=== PATIENT | male | born 1960 | race Caucasian/White ===

== ENCOUNTER 2018-02-22 12:45 | Emergency (ER) | payer BC ==
[~2018-02-22 12:45] MED LIST: SODIUM CHLORIDE 0.9% 1000ML 1,000 ML IV STA
[2018-02-22] MEDS ORDERED: SODIUM CHLORIDE 0.9% 10ML FLUSH IV ONE (12:47)
[2018-02-22] MEDS ORDERED: CALCIUM CHLORIDE 10% 10 ML SYR IV ONE (12:47)
[2018-02-22] MEDS ORDERED: SODIUM BICARB 8.4% INJ 50 MEQ/50 ML SYR IV ONE ×2 (12:47→13:10)
[2018-02-22] MEDS ORDERED: VASOPRESSIN IV PRN (13:15)
[2018-02-22] MEDS ORDERED: SODIUM CHLORIDE 0.9% IV PRN (13:15)
[2018-02-22 13:25] VITALS: O2SAT 78
[2018-02-22 13:26] VITALS: BP 137/63
--- NOTE | 2018-02-22 13:28 | DIAGNOSTIC IMAGING REPORT ---
CHEST ONE VIEW PORTABLE CLINICAL HISTORY: CODE BLUE dyspnea COMPARISON STUDY: No previous studies for comparison. FINDINGS: Endotracheal tube 4 cm with the trevor. Upper lobe bilateral parenchymal infiltrative change. Mild infiltrative change left base. Mild cardiomegaly. IMPRESSION: 1. Endotracheal tube 4 cm below the trevor. 2. Diffuse bilateral parenchymal infiltrative change The above report was generated using voice recognition software. It may contain grammatical, syntax or spelling errors. Electronically signed by: Dominick Wang M.D. 02/22/2018 1:26 PM Dictated Date/Time: 02/22/2018 1:26 PM
[2018-02-22 13:32] LABS: HEMATOCRIT 45.8 % (42-52); MEAN CELL VOLUME 94.8 fL (80-100); MEAN CORPUSCULAR HGB CONC 30.6 g/dl (32-36); MEAN PLATELET VOLUME 10.3 fL (7.4-10.4); PLATELET COUNT 208 K/uL (130-400); RED CELL DISTRIBUTION WIDTH CV 13.4 % (11.5-14.5); RED CELL DISTRIBUTION WIDTH SD 46.7 fL (36.4-46.3); WHITE BLOOD COUNT 20.78 K/uL (4.8-10.8)
[2018-02-22] MEDS ORDERED: LIDOCAINE 2% 20 MG/ML 5ML SYR ONE (13:32)
[2018-02-22 13:36] VITALS: PULSE 54
[2018-02-22 13:40] LABS: INR 1.2 (0.9-1.1); PTT PATIENT 43.1 SECONDS (21.0-31.0)
--- NOTE | 2018-02-22 13:56 | Procedure Note ---
Procedure Note Procedure Date Feb 22, 2018. Procedure Description Procedure Name: Left femoral arterial line Consent obtained: emergent consent implied Time of procedure: 13:15 Performed by: attending Indications: diagnostic Contraindications: none Description: Patient's left groin was prepped with chlorhexidine, patient had just regained return of spontaneous circulation, indication was continuous arterial waveform documentation. Left femoral artery was identified by palpation, a introducer needle was introduced, pulsatile blood was noted to return, guidewire was inserted after small skin juli a 12 cm 20-gauge angiocatheter was inserted into the left femoral artery and was secured via suture. Complications: none Patient tolerated procedure: well Post-procedure vital signs: reviewed and stable Comments: Blood gas testing was performed on the specimen obtained from femoral arterial line with spontaneous pulsatile blood flow
--- NOTE | 2018-02-22 14:07 | Critical Care Consultation ---
Critical Care Consultation Date of Consultation: Feb 22, 2018. Attending Physician: Juan Antonio Pavon MD Reason for Consultation: CODE BLUE, respiratory arrest leading to cardiac arrest History of Present Illness History is limited due to acuity of situation, history obtained from paramedics and emergency department physician. Per report the patient had suffered a hypoxic respiratory arrest requiring CPR. Per paramedics the patient received approximately 40 minutes of CPR before there was return of spontaneous circulation. There is an extended transport from [facility] and the patient subsequently lost spontaneous circulation upon his arrival in the emergency department. Patient was receiving active chest compressions upon my arrival in the emergency department. There is reported history of continued tobacco abuse and likely COPD. There is no known history of heart disease nor pulmonary embolism, the patient has reportedly relocated to the area from [place] in the preceding couple of days. Past Medical/Surgical History As noted above Social History Smoking Status: Former Smoker Allergies Coded Allergies: No Known Allergies (Unverified , 02/22/18) Current Inpatient Medications Current Inpatient Medications Medications (Trade) Dose Ordered Sig/Lawanda Route Start Time Stop Time Status Last Admin Dose Admin Vasopressin 20 units/Sodium Chloride 101 ml @ 12 mls/hr [id number] PRN IV 02/22/18 13:15 02/22/18 21:00 Vasopressin 20 units/Sodium Chloride 101 ml @ 12 mls/hr [id number] IV 02/22/18 21:00 03/24/18 20:59 Review of Systems Unable to obtain secondary to patient condition Physical Exam Date Time Temp Pulse Resp B/P (MAP) Pulse Ox O2 Delivery O2 Flow Rate FiO2 02/22/18 13:36 54 02/22/18 13:15 100 02/22/18 13:01 58 02/22/18 12:57 67 General Appearance: severe distress Head: normocephalic ENT: other (Endotracheal tube present, bloody secretions noted coming from the endotracheal tube) Neck: trachea midline, other (JVD is present) Respiratory: rhonchi, other (Severely coarse sounds bilaterally) Cardiovasular: irregular rate (Bradycardia) Abdomen: non tender, no organomegaly Upper Extremities: no deformity Lower Extremities: no edema Pulses: femoral (R) (1+), femoral (L) (1+) Neuro: other (GCS 3 T) Laboratory Results Last 24 Hours Test 02/22/18 12:41 02/22/18 13:14 Creatine Kinase MB Ratio White Blood Count 20.78 K/uL Red Blood Count 4.83 M/uL Hemoglobin 14.0 g/dL Hematocrit 45.8 % Mean Corpuscular Volume 94.8 fL Mean Corpuscular Hemoglobin 29.0 pg Mean Corpuscular Hemoglobin Concent 30.6 g/dl Platelet Count 208 K/uL Mean Platelet Volume 10.3 fL RDW Standard Deviation 46.7 fL RDW Coefficient of Variation 13.4 % Prothrombin Time 12.3 SECONDS Prothromb Time International Ratio 1.2 Activated Partial Thromboplast Time 43.1 SECONDS Partial Thromboplastin Ratio 1.7 Lactic Acid Level 11.3 mmol/L Diagnostic Results CHEST ONE VIEW PORTABLE CLINICAL HISTORY: CODE BLUE dyspnea COMPARISON STUDY: No previous studies for comparison. FINDINGS: Endotracheal tube 4 cm with the trevor. Upper lobe bilateral parenchymal infiltrative change. Mild infiltrative change left base. Mild cardiomegaly. IMPRESSION: 1. Endotracheal tube 4 cm below the trevor. 2. Diffuse bilateral parenchymal infiltrative change The above report was generated using voice recognition software. It may contain grammatical, syntax or spelling errors. Electronically signed by: Dominick Wang M.D. 02/22/2018 1:26 PM Dictated Date/Time: 02/22/2018 1:26 PM EKG per my interpretation revealed sinus rhythm rate of 59, normal axis normal intervals no ST segment elevations, no prior EKG for comparisons. Assessment & Plan Reason Critically Ill: 57-year-old male status post cardiac arrest secondary to respiratory arrest PLAN: Resp: Acute respiratory distress syndrome -Inability to oxygenate ventilate secondary to underlying disease process CV: Cardiac arrest -Profound acidemia -Patient ultimately lost responsiveness to the vasoactive medications and went into asystole Fluids/Renal: Profound metabolic and respiratory acidosis -Given multiple rounds of bicarb Heme: Per ED physician limited bedside ultrasound did not demonstrate thrombus in the common femoral veins -Consideration given to acute pulmonary embolism Vascular access: Peripheral IV, intraosseous access 2 Patient had return of spontaneous circulation once in the emergency department, we are able to place an arterial line and discovered a profound metabolic and respiratory acidosis, patient quickly lost responsiveness to vasoactive medications and again went into cardiac arrest. Consideration was given to transferring the patient if possible for trial of extracorporeal membrane oxygenation given the profound respiratory acidosis and already evident acute respiratory distress syndrome. Ultimately the patient could not be resuscitated , his was brought to the bedside and requested resuscitative measures be ceased and the patient at 1326 with his at the bedside I have personally spent 35 minutes of critical care time in the direct management of this patient. This is a life/limb threatening event. This includes time spent evaluating patient, direct bedside care, chart review, placing orders, interpretation of diagnostic studies, discussion with consultants, patient, and/or family members regarding treatment decisions, as well as other required patient management activities. This time is exclusive of all separately billable procedures, and teaching time and separate from and in addition to any other critical care service time. My critical care time was spent directing the medication administration for the patient while Dr. Pavon was discussing with the patient's as well as attempting to coordinate transfer.
[2018-02-22 14:09] LABS: ALKALINE PHOSPHATASE 130 U/L (45-117); ALT/SGPT 110 U/L (12-78); AST/SGOT 176 U/L (15-37); BLOOD UREA NITROGEN 18 mg/dl (7-18); CALCIUM 9.7 mg/dl (8.5-10.1); CARBON DIOXIDE 26 mmol/L (21-32); CKMB 1.7 ng/ml (0.5-3.6); CREATININE 1.58 mg/dl (0.60-1.40); GLUCOSE 358 mg/dl (70-99); POTASSIUM 8.7 mmol/L (3.5-5.1); SODIUM 136 mmol/L (136-145); TOTAL PROTEIN 6.3 gm/dl (6.4-8.2)
--- NOTE | 2018-02-22 19:25 | EMERGENCY ROOM VISIT NOTE ---
History Report prepared by Ailyn: Es Montgomery Under the Supervision of: Dr. Juan Antonio Pavon D.O. First contact with patient: 12:26 Chief Complaint: RESP. ARREST Stated Complaint: Respiratory Arrest History of Present Illness The patient is a 57 year old male who presents to the Emergency Room with respiratory arrest beginning around 1100 this morning. Per EMS, the patient has a history of hypertension and had extra phlegm build up yesterday. Per EMS, the patient suddenly felt short of breath this morning. Per EMS, the patient's went to get his nebulizer but that the patient was agonal at this point. Per EMS , cardiac arrest was called at 1110. EMS states that the patient was first given epinephrine at 1135. EMS states that the patient had 3 rounds of epinephrine after this and also 100 mg of lidocaine. EMS states that the patient was shocked once. EMS states that the patient's pulses were in the 40s- 50s and that his systolics have been in the 70s. Per EMS, the patient's end tidals have been 60+. EMS states that the patient had a 7.5 tube placed. Limited HPI secondary to intubation. The following information was obtained from a medical command call: The patient had trouble breathing and was unresponsive. He lost pulses and was shocked once. ROSC. The patient was given 3 rounds of epinephrine and 100 mg of Lidocaine. He had an ET tube in place. Per nursing staff, the patient has a history of COPD, hypertension, and a rotator cuff repair. Nursing staff reports that the patient takes tramadol for pain management. Per nursing staff, the patient did not take any medications today. Source of History: EMS, nursing staff History Limited By: intubation Onset: around 1100 this morning Position: chest Quality: other (respiratory arrest) Review of Systems Limited ROS secondary to intubation. Past Medical & Surgical Medical Problems: (1) COPD (chronic obstructive pulmonary disease) (2) HTN (hypertension) Surgical Problems: (1) S/P rotator cuff repair Family History Unable to obtain medical history sheet secondary to intubation. Social History Marital Status: Housing Status: lives with significant other Allergies Coded Allergies: No Known Allergies (Unverified , 02/22/18) Physical Exam Vital Signs Date Time Temp Pulse Resp B/P (MAP) Pulse Ox O2 Delivery O2 Flow Rate FiO2 02/22/18 13:36 54 02/22/18 13:26 137/63 7/31/18 13:25 133 0 78 02/22/18 13:20 148 131 2 02/22/18 13:19 /49 02/22/18 13:17 55/15 02/22/18 13:15 132 8 02/22/18 13:15 100 02/22/18 13:13 110/82 02/22/18 13:11 99/57 02/22/18 13:10 14 85/61 02/22/18 13:05 53 14 59 02/22/18 13:04 192/123 02/22/18 13:02 181/134 02/22/18 13:01 58 02/22/18 13:00 64 9 02/22/18 12:58 231/107 02/22/18 12:57 67 02/22/18 12:55 155 11 115/46 56 Physical Exam GENERAL: Laying on stretcher. Unresponsive. ET tube in place. HEAD: NC/AT EYE EXAM: Pupils fixed and dilated. OROPHARYNX: ET tube in place. NECK: supple, no nuchal rigidity, no adenopathy, non-tender LUNGS: Rhonchi bilaterally. HEART: No audible sounds. Vascular: Femoral and carotid pulses unobtainable ABDOMEN: abdomen soft, non-tender, normo-active bowel sounds, no masses, no rebound or guarding. LOWER EXTREMITIES: Calves are equal bilaterally. NEURO EXAM: GCS 3T. Medical Decision & Procedures ER Provider Diagnostic Interpretation: Multiple bedside ultrasounds were performed. Bedside ultrasound with intermittent cardiac contractility present. Slightly dilated LV. Proximal lower extremity femoral veins compressible. CHEST ONE VIEW PORTABLE CLINICAL HISTORY: CODE BLUE dyspnea COMPARISON STUDY: No previous studies for comparison. FINDINGS: Endotracheal tube 4 cm with the trevor. Upper lobe bilateral parenchymal infiltrative change. Mild infiltrative change left base. Mild cardiomegaly. IMPRESSION: 1. Endotracheal tube 4 cm below the trevor. 2. Diffuse bilateral parenchymal infiltrative change The above report was generated using voice recognition software. It may contain grammatical, syntax or spelling errors. Electronically signed by: Dominick Wang M.D. 02/22/2018 1:26 PM Dictated Date/Time: 02/22/2018 1:26 PM Laboratory Results 02/22/18 13:14 Red Blood Count 4.83, Mean Corpuscular Volume 94.8, Mean Corpuscular Hemoglobin 29.0, Mean Corpuscular Hemoglobin Concent 30.6, Mean Platelet Volume 10.3 02/22/18 13:14 Test 02/22/18 13:14 White Blood Count 20.78 K/uL (4.8-10.8) Red Blood Count 4.83 M/uL (4.7-6.1) Hemoglobin 14.0 g/dL (14.0-18.0) Hematocrit 45.8 % (42-52) Mean Corpuscular Volume 94.8 fL (80-100) Mean Corpuscular Hemoglobin 29.0 pg (25-34) Mean Corpuscular Hemoglobin Concent 30.6 g/dl (32-36) Platelet Count 208 K/uL (130-400) Mean Platelet Volume 10.3 fL (7.4-10.4) RDW Standard Deviation 46.7 fL (36.4-46.3) RDW Coefficient of Variation 13.4 % (11.5-14.5) Neutrophils % (Manual) 53.5 % Lymphocytes % (Manual) 20.2 % Variant Lymphocytes % (manual) 14.0 % Monocytes % (Manual) 2.6 % Eosinophils % (Manual) 3.5 % Basophils % (Manual) 0.9 % (0-2) Metamyelocytes % 1.8 % Myelocytes % 3.5 % Neutrophils # (Manual) 11.12 K/uL (1.4-6.5) Total Absolute Neutrophils 11.12 K/uL (1.4-6.5) Lymphocytes # (Manual) 4.20 K/uL (1.2-3.4) Absolute Variant Lymphocytes 2.91 K/uL Total Absolute Lymphocytes 7.11 K/uL (1.2-3.4) Monocytes # (Manual) 0.54 K/uL (0.11-0.59) Eosinophils # (Manual) 0.73 K/uL (0-0.5) Basophils # (Manual) 0.19 K/uL (0-0.2) Metamyelocytes # 0.37 K/uL (0-0) Myelocytes # 0.73 K/uL (0-0) Blood Smear Review Prothrombin Time 12.3 SECONDS (9.0-12.0) Prothromb Time International Ratio 1.2 (0.9-1.1) Activated Partial Thromboplast Time 43.1 SECONDS (21.0-31.0) Partial Thromboplastin Ratio 1.7 Anion Gap 10.0 mmol/L (3-11) Estimated GFR () 55.8 Estimated GFR (Non- 48.2 BUN/Creatinine Ratio 11.3 (10-20) Lactic Acid Level 11.3 mmol/L (0.4-2.0) Calcium Level 9.7 mg/dl (8.5-10.1) Total Bilirubin 0.3 mg/dl (0.2-1) Direct Bilirubin mg/dl (0-0.2) Aspartate Amino Transf (AST/SGOT) 176 U/L (15-37) Alanine Aminotransferase (ALT/SGPT) 110 U/L (12-78) Alkaline Phosphatase 130 U/L (45-117) Total Creatine Kinase 148 U/L (39-308) Creatine Kinase MB 1.7 ng/ml (0.5-3.6) Creatine Kinase MB Ratio 1.1 (0-3.0) Troponin I 0.022 ng/ml (0-0.045) Total Protein 6.3 gm/dl (6.4-8.2) Albumin 3.0 gm/dl (3.4-5.0) Beta-Hydroxybutyric Acid mg/dL (0.2-2.81) Chemistry Specimen Hemolysis Laboratory results per my review. Procedure CPR: CPR was performed under my direction for a total of 25 minutes. ECG Per My Interpretation Indication: other (respiratory arrest) Rate (beats per minute): 59 Rhythm: sinus bradycardia Findings: nonspecific-ST abn (Inferior and lateral ), other (sinus arrythmia) ED Course ED COURSE: Vital signs were reviewed and showed hypoxia and hypertension initially. The patients medical record was reviewed The above diagnostic studies were performed and reviewed. ED treatments and interventions as stated above. 1236: I informed Dr. Peña-ICU that the patient was arriving shortly. 1241: Ordered Sodium Chloride 1000 ml @ 999 mls/hr IV. 1244: The patient was evaluated in room B1. Throughout the course, the patient received 6 bicarbonate, 2 calcium gluconate, an epinephrine drip and a vasopressor drip. 1259: Dr. Peña came to the room to evaluate the patient. 1310: Ordered Sodium Bicarbonate 50 ml IV. 1312: I spoke with the patient's . 1315: Ordered Epinephrine HCl 4 mg IV. 1326: The patient . 1330: I spoke with the patient's . Medical Decision Differential diagnoses includes but is not limited to acute coronary syndrome, myocardial infarction, pericarditis, pulmonary embolus, aortic dissection, pneumonia, pneumothorax, musculoskeletal, shingles, esophageal. Patient is a 57-year-old male who is brought in by EMS for what appeared to be a respiratory arrest. Patient was having trouble breathing over the past 24 hours and got significantly worse. He was using his inhalers and nebulizers frequently. Does have a history of COPD. He became unresponsive and his jaw clenched down per . EMS was called. He began CPR and they shocked him once. He received 3 rounds of epinephrine prior to arrival in the 100 mg of Lidoderm as he went into a V. fib which resolved after the shot. They did obtain ROSC. He was intubated and brought into the ER. Upon presentation to the ER we were unable to obtain pulses. CPR was resumed under my direction. Bedside ultrasound showed no cardiac contractility. Patient was given a total of 8 epinephrines, 6 bicarbs and 1 dose of calcium gluconate. We obtained ROSC on two separate occasions but this deteriorated. I did perform a focused limited ultrasound of the lower extremities and femoral venous structures were compressible. Chest x-ray did show diffuse pulmonary edema. ABG was obtained by respiratory and showed a pH of 6.7. CO2 was close to 150. CBC along with BMP showed hyperkalemia. LFTs are slightly elevated and there is a significant lactic acidosis all of which I favor secondary to his prolonged downtime. [employer] Manager was at bedside as well. He remained significantly hypoxic in the low 70s while intubated with ROSC. After discussion with the exhibit electrician with his age and difficulty oxygenating/ventilating he thought it would be best to transfer for possible ECMO. he was at this time in a long discussion with the . When he presented back into the room the patient coded again. CPR was resumed. Was at this time we brought the and noted that this was probably a nonsurvivable event with his prolonged downtime recurrent coding and inability to oxygenate/ventilate. He would not survive flight to an ECMO center. We continued CPR and after prolonged discussion with the at bedside terminated resuscitative efforts. Medication Reconcilliation Current Medication List: was personally reviewed by me Blood Pressure Screening Patient's blood pressure: Elevated blood pressure (initially ) Consults Time Called: 1230 Consulting Physician: Dr. Peña- ICU Returned Call: [address] Turner that the patient was arriving shortly. Impression Primary Impression: Respiratory arrest Critical Care I have personally spent 75 minutes of critical care time in the direct management of this patient. This includes bedside care, interpretation of diagnostic studies, and testing, discussion with consultants, patient, and family members, and other required patient management activities. This 75 minutes is in excess of all separately billable procedures. Scribe Attestation The scribe's documentation has been prepared under my direction and personally reviewed by me in its entirety. I confirm that the note above accurately reflects all work, treatment, procedures, and medical decision making performed by me. Departure Information Dispostion Patient Instructions My [facility]
[2018-02-22] MEDS ORDERED: VASOPRESSIN IV SCH (21:00)
[2018-02-22] MEDS ORDERED: SODIUM CHLORIDE 0.9% IV SCH (21:00)
== END 2018-02-22 15:10 | disposition expired ==
LOC: EDBD 12:45 → C.EDB 12:46 → C.EDA 15:10
DX: I46.9 Cardiac arrest, cause unspecified (principal); I10 Essential (primary) hypertension; J44.9 Chronic obstructive pulmonary disease, unspecified; Z79.899 Other long term (current) drug therapy; Z87.891 Personal history of nicotine dependence